=== PATIENT | female | born 1990 | race African-American/Black ===

== ENCOUNTER 2019-03-11 09:05 | Outpatient (CLI) | payer OTHER | END 2019-03-11 10:30 | disposition home or self-care (01) | LOC: PRENATAL 09:05 | DX: O35.3XX0 Maternal care for (suspected) damage to fetus from viral disease in mother, not applicable or unspecified (principal); O34.211 Maternal care for low transverse scar from previous cesarean delivery; O65.5 Obstructed labor due to abnormality of maternal pelvic organs ==

== ENCOUNTER 2019-04-06 08:13 | Emergency (ER) | payer OTHER ==
[~2019-04-06] VITALS: Ht 157.5 cm; Wt 81.6 kg
== END 2019-04-06 09:55 | disposition home or self-care (01) ==
LOC: ER 08:13
DX: O26.892 Other specified pregnancy related conditions, second trimester (principal); H66.92 Otitis media, unspecified, left ear; R53.81 Other malaise; Z34.02 Encounter for supervision of normal first pregnancy, second trimester

== ENCOUNTER 2019-04-06 11:37 | Outpatient (CLI) | payer OTHER | END 2019-04-06 17:44 | disposition home or self-care (01) | LOC: OBS/DEL 11:37 | DX: O26.892 Other specified pregnancy related conditions, second trimester (principal); R42 Dizziness and giddiness ==

== ENCOUNTER → 2019-05-06 | Outpatient (CLI) | payer OTHER | END | disposition home or self-care (01) | LOC: PRENATAL 08:00 | DX: O26.843 Uterine size-date discrepancy, third trimester (principal); O28.3 Abnormal ultrasonic finding on antenatal screening of mother; O34.211 Maternal care for low transverse scar from previous cesarean delivery ==

== ENCOUNTER 2019-06-01 20:55 | Outpatient (CLI) | payer OTHER | END 2019-06-02 14:39 | disposition home or self-care (01) | LOC: OBS/DEL 20:55 | DX: O26.893 Other specified pregnancy related conditions, third trimester (principal); R10.2 Pelvic and perineal pain ==

== ENCOUNTER 2019-06-17 09:51 | Inpatient (IN) | payer OTHER ==
[~2019-06-17] VITALS: Ht 157.5 cm; Wt 3.6 kg
[2019-07-04] MEDS ORDERED: PERCOCET 5-3251 EACH PO (08:56)
== END 2019-07-04 13:08 | DRG 788 ==
LOC: O/R 07-02 07:15 → OB/GYN 07-02 09:30
PROVIDERS: ADMIT Specialist
PROC: 4A1HXCZ Monitoring of Products of Conception, Cardiac Rate, External Approach (ICD-10-PCS; 2019-07-02)
PROC: 10D00Z1 Extraction of Products of Conception, Low, Open Approach (ICD-10-PCS; principal; 2019-07-02 10:00)
DX: O34.211 Maternal care for low transverse scar from previous cesarean delivery (principal); O82 Encounter for cesarean delivery without indication; Z3A.38 38 weeks gestation of pregnancy; Z37.0 Single live birth

== ENCOUNTER 2022-02-10 11:01 | Emergency (ER) | payer OTHER ==
[~2022-02-10] VITALS: Ht 157.5 cm; Wt 83.9 kg
[~2022-02-10 11:01] MED LIST: PERCOCET 5-3251 EACH PO
[2022-02-10] MEDS ORDERED: PRENA1 CHEW TA1.4 MG (11:07)
== END 2022-02-12 09:15 | disposition home or self-care (01) ==
LOC: ER 11:01
DX: O26.892 Other specified pregnancy related conditions, second trimester (principal); Z3A.17 17 weeks gestation of pregnancy; R10.2 Pelvic and perineal pain; S00.93XA Contusion of unspecified part of head, initial encounter; W18.30XA Fall on same level, unspecified, initial encounter; Y93.9 Activity, unspecified; Y92.018 Other place in single-family (private) house as the place of occurrence of the external cause; Y99.9 Unspecified external cause status

== ENCOUNTER → 2023-09-16 | Day surgery (SDC) | payer OTHER ==
[~2023-09-16] VITALS: Ht 157.5 cm; Wt 88.5 kg
[~2023-09-16] MED LIST changes: +ALBUTEROL SULFATE 3 ML/2.5 MG AMPUL.NEB IH ONE; +BUPIVACAINE HCL/PF 0.5% 30ML ML ONE; +CEFAZOLIN SODIUM 1,000 MG VIAL IV ONE; +CEFAZOLIN SODIUM 1,000 MG VIAL ONE; +FUROsemide 20 MG/2 ML VIAL IV ONE; +FUROsemide 20 MG/2 ML VIAL ONE; +HYDROCORTISONE SODIUM SUCC/PF 100 MG VIAL IV ONE; +HYDROCORTISONE SODIUM SUCC/PF 100 MG VIAL ONE; +LIDOCAINE HCL/EPINEPHRINE 10MG/ML 1% 50ML IJ ONE; +MORPHINE SULFATE 4 MG/ML CARTRIDGE IV SCH; +PEPCID AC20 MG PO; +PRENA1 CHEW TA1.4 MG; +RACEPINEPHRINE HCL 0.5 ML AMPUL IH ONE; +SUGAMMADEX SODIUM 200 MG/2 ML VIAL IV ONE
[2023-09-16 14:55] LABS: ABG PH 7.327 (7.35-7.45); ABG PO2 166.8 mmHg (80-100); ABG pCO2 47.4 mmHg (35-45); BASE EXCESS -2.1 mmol/l; BICARBONATE 24.2 mmol/l (23-25); SaO2 99.3 %; Tco2 25.7 mmol/l
[2023-09-16 14:56] LABS: allen test SATISFACTORY; o2 40 %; puncture site RADIAL LEFT
== END | disposition home or self-care (01) ==
LOC: CIR.AMB 05:30 → EDSTATUS 12:00 → SURH 12:00 → CIR.AMB 18:00
PROVIDERS: Anesthesiology; ATTEND Surgery
DX: K80.20 Calculus of gallbladder without cholecystitis without obstruction (principal)

== ENCOUNTER 2024-03-10 12:12 | Emergency (ER) | payer OTHER ==
[~2024-03-10] VITALS: Ht 167.6 cm; Wt 85.7 kg
[~2024-03-10 12:12] MED LIST changes: -ALBUTEROL SULFATE 3 ML/2.5 MG AMPUL.NEB IH ONE; -BUPIVACAINE HCL/PF 0.5% 30ML ML ONE; -CEFAZOLIN SODIUM 1,000 MG VIAL IV ONE; -CEFAZOLIN SODIUM 1,000 MG VIAL ONE; -FUROsemide 20 MG/2 ML VIAL IV ONE; -FUROsemide 20 MG/2 ML VIAL ONE; -HYDROCORTISONE SODIUM SUCC/PF 100 MG VIAL IV ONE; -HYDROCORTISONE SODIUM SUCC/PF 100 MG VIAL ONE; -LIDOCAINE HCL/EPINEPHRINE 10MG/ML 1% 50ML IJ ONE; -MORPHINE SULFATE 4 MG/ML CARTRIDGE IV SCH; -RACEPINEPHRINE HCL 0.5 ML AMPUL IH ONE; -SUGAMMADEX SODIUM 200 MG/2 ML VIAL IV ONE
[2024-03-10] MEDS ORDERED: ACETAMINOPHEN 500 MG GEL..CAP PO ONE (12:15)
[2024-03-10 12:20] VITALS: BP 90/53; O2SAT 98
[2024-03-10] MEDS ORDERED: 0.9 % SODIUM CHLORIDE 500 ML IV ONE (13:15)
[2024-03-10 13:49] LABS: HEMATOCRIT 33.9 % (36.0-45.00); HEMOGLOBIN 11.5 g/dL (12.0-15.00); MEAN CELL VOLUME 82.2 fL (80.00-100.00); MEAN CORPUSCULAR HEMOGLOBIN 27.9 pg (27.00-32.0); PLATELET COUNT 287 K/uL (150-450); RED BLOOD COUNT 4.13 M/uL (4.00-6.00); RED CELL DISTRIBUTION WIDTH 14.1 % (11.5-14.5)
[2024-03-10 14:23] LABS: CALCIUM 8.9 mg/dL (8.5-10.1); CREATININE SERUM 0.71 mg/dL (0.55-1.02); GFR 96.01; POTASSIUM 3.62 mEq/L (3.5-5.1)
[2024-03-10] MEDS ORDERED: AMOX1TAB5 PO (14:45)
[2024-03-10] MEDS ORDERED: CHLORASEPTIC M118 ML MM (14:45)
== END 2024-03-10 14:54 | disposition home or self-care (01) ==
LOC: ER 12:12
PROVIDERS: General Practice
DX: J02.9 Acute pharyngitis, unspecified (principal); Z20.822 Contact with and (suspected) exposure to COVID-19

== ENCOUNTER → 2024-10-14 | Emergency (ER) | payer OTHER ==
[~2024-10-14] VITALS: Ht 157.5 cm; Wt 87.1 kg
[~2024-10-14] MED LIST changes: +AMOX1TAB5 PO; +CHLORASEPTIC M118 ML MM; +MEDROLPACK PO; +METHYLPREDNISOLONE SOD SUCC 125 MG VIAL IV ONE; +METHYLPREDNISOLONE SOD SUCC 125 MG VIAL ONE
[2024-10-14 12:59] LABS: HEMATOCRIT 38.3 % (36.0-45.00); HEMOGLOBIN 12.3 g/dL (12.0-15.00); MEAN CELL VOLUME 84.8 fL (80.00-100.00); MEAN CORPUSCULAR HEMOGLOBIN 27.3 pg (27.00-32.0); MEAN CORPUSCULAR HGB CONC 32.2 g/dl (32.0-36.0); PLATELET COUNT 349 K/uL (150-450); RED BLOOD COUNT 4.51 M/uL (4.00-6.00); RED CELL DISTRIBUTION WIDTH 14.7 % (11.5-14.5)
[2024-10-14 13:26] LABS: ALBUMIN 3.7 gm/dL (3.4-5.0); BILIRUBIN TOTAL 0.6 mg/dL (0.3-1.2); CALCIUM 9.4 mg/dL (8.5-10.1); CREATININE SERUM 0.79 mg/dL (0.55-1.02); GFR 84.34; GLOBULINA 4.2 G/DL (2.4-3.5); POTASSIUM 4.31 mEq/L (3.5-5.1); TOTAL PROTEIN 7.9 gm/dL (6.4-8.2)
== END | disposition home or self-care (01) ==
LOC: ER 11:03
PROVIDERS: General Practice
DX: G51.0 Bell's palsy (principal)

== ENCOUNTER 2025-03-08 23:57 | Emergency (ER) | payer OTHER ==
[~2025-03-08] VITALS: Ht 157.5 cm; Wt 83.9 kg
[~2025-03-08 23:57] MED LIST changes: -METHYLPREDNISOLONE SOD SUCC 125 MG VIAL IV ONE; -METHYLPREDNISOLONE SOD SUCC 125 MG VIAL ONE
[2025-03-09] MEDS ORDERED: KETOROLAC TROMETHAMINE 10 MG TABLET PO STA (00:48)
[2025-03-09] MEDS ORDERED: ORPHENADRINE CITRATE 30 MG/ML AMPUL IM STA (00:49)
[2025-03-09] MEDS ORDERED: KETOROLAC TROMETHAMINE 10 MG TABLET PO ONE (00:50)
[2025-03-09] MEDS ORDERED: ORPHENADRINE CITRATE 30 MG/ML AMPUL ONE (00:50)
[2025-03-09 01:06] LABS: BASO % 0.3 % (0.1-1.2); EOS # 0.15 (0.04-0.54); EOS % 1.4 % (0.7-7.0); LYMPH # 2.65 (1.18-3.74); LYMPH % 25.5 % (19.3-53.1); MEAN PLATELET VOLUME 10.30 fl (9.4-12.4); MONO # 1.05 (0.24-0.82); MONO % 10.1 % (4.7-12.5); NEUT # 6.49 (1.56-6.13); NEUT % 62.5 % (34.0-71.1); RED CELL DISTRIBUTION WIDTH 14.1 % (11.6-14.4)
[2025-03-09 02:41] LABS: BUN CREA RATIO 16 (7.0-25.0); CREATININE SERUM 0.68 mg/dL (0.55-1.02); GFR 100.27; GLUCOSE FASTING 111 mg/dL (65-100); OSMOLALITY SERUM 281 MOSM/KG (275-295)
[2025-03-09 02:49] LABS: HCG QUANTITATIVE < 1 mUI/mL (1-3)
[2025-03-09] MEDS ORDERED: INTEGRA PLUS C1 EACH PO (06:11)
[2025-03-09] MEDS ORDERED: KETO10TA2 PO (06:11)
== END 2025-03-09 06:18 ==
LOC: ER 23:57
PROVIDERS: General Practice
DX: S40.012A Contusion of left shoulder, initial encounter (principal); S70.02XA Contusion of left hip, initial encounter; W10.8XXA Fall (on) (from) other stairs and steps, initial encounter; Y93.89 Activity, other specified; Y92.018 Other place in single-family (private) house as the place of occurrence of the external cause; Y99.9 Unspecified external cause status; R42 Dizziness and giddiness